=== PATIENT | male | born 1985 | race Caucasian/White ===

== ENCOUNTER 2017-02-23 04:51 | Emergency (ER) | payer OTHER ==
[~2017-02-23] VITALS: Ht 185.4 cm; Wt 127.0 kg
[~2017-02-23 04:51] MED LIST: PREDNISONE10 MG PO
[2017-02-23 04:57] VITALS: BP 150/83
--- NOTE | 2017-02-23 05:59 | RADIOLOGY REPORT ---
EXAMINATION: 3 VIEWS OF THE LEFT FOOT AND 3 VIEWS OF THE LEFT ANKLE CLINICAL INFORMATION: Pain after rolling ankle COMPARISON: None available FINDINGS: Left ankle: No acute fracture is appreciated. Bony articulations are maintained. There is a small chronic appearing well-corticated ossific density along the lateral margin of the talus. There is no ankle joint effusion. No radiopaque foreign body. Left foot: Please note that assessment of the left foot is technically limited with several of the digits not entirely included on this study despite window and leveling. The digits are present on the lateral view. No fractures are identified. The bony articulations are maintained. IMPRESSION: Left ankle: No fracture. Left foot: Technically limited study. Please note that the digits are not entirely included on the submitted views. No acute findings within the visualized left foot.
--- NOTE | 2017-02-23 06:04 | ED ANKLE/FOOT INJURY COMPLAINT ---
History of Present Illness General Chief Complaint: Foot or Ankle Injury Stated Complaint: L ANKLE INJURY "ROLLED" Source: patient Exam Limitations: no limitations Vital Signs & Intake/Output Vital Signs & Intake/Output Vital Signs Date Time Temp Pulse Resp B/P B/P Pulse O2 O2 Flow FiO2 Mean Ox Delivery Rate 02/23 0457 98.0 91 20 150/83 99 Allergies Coded Allergies: NO KNOWN ALLERGIES (12/05/14) Reconcile Medications No Known Home Medications Triage Note: PER PT ROLLED L ANKLE PLAYING BASKETBALL ABOUT 1999, PAIN 04/14 INTENSE Triage Nurses Notes Reviewed? yes Occurred: yesterday Duration: hour(s):, constant, continues in ED, getting worse Severity: moderate Pain/Injury Location: Left: Ankle. Modifying Factors: Worsens With: movement. HPI: Patient presents for evaluation of left ankle pain after "rolled" it. Incident occurred at about 7 or 8:00 last night. Since then he has had worsening pain and swelling particularly over the lateral aspect of the left ankle. No associated ecchymoses at this point. Patient has not tried any medications for it. Past History Travel History Traveled to [place] past 21 day No Medical History Any Pertinent Medical History? 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 No Review of Systems Review of Systems Constitutional: Reports: no symptoms. EENTM: Reports: no symptoms. Respiratory: Reports: no symptoms. Cardiovascular: Reports: no symptoms. GI: Reports: no symptoms. Genitourinary: Reports: no symptoms. Musculoskeletal: Reports: see HPI. Skin: Reports: no symptoms. Neurological/Psychological: Reports: no symptoms. Hematologic/Endocrine: Reports: no symptoms. Immunologic/Allergic: Reports: no symptoms. All Other Systems: Reviewed and Negative Physical Exam Physical Exam Leg/Knee/Thigh Left: SEE BELOW Comments: Gen.: Well-nourished, well-developed, no acute respiratory distress. Head: Normocephalic, atraumatic. Eyes: Normal inspection bilaterally Ears: Normal inspection bilaterally Nose: Normal inspection, nasal cannula in place Throat/mouth : Moist mucosa Neck: Supple, full range of motion, no goiter Heart: Regular rate and rhythm Lungs: Quiet respirations Back: Normal range of motion Extremities: Left ankle: Lateral soft tissue swelling with tenderness but no tenderness over the posterior aspect of the lateral malleolus, no tenderness over the medial malleolus or anteriorly. The left foot is neurovascularly intact with sensation to light touch normal, normal dorsalis pedis pulse and normal capillary refill to the toes. The left foot is nontender to palpation. Neurologic: Cranial nerves grossly intact, speech is clear Skin: warm and dry Psychiatric: Calm, cooperative, no apparent delusions or hallucinations Progress Differential Diagnosis: fracture, dislocation, sprain Plan of Care: Orders Procedure Date/time Status Durable Medical Equipment 02/24 616 Active Current Medications Sig/Jorge Start time Last Medication Dose Stop Time Status Admin Ibuprofen 600 MG ONCE ONE 02/23 630 UNVr (Motrin) 02/23 631 Diagnostic Imaging: Discussed w/RAD: Radiology Read. Radiology Impression: PATIENT: JUWAN DE LA FUENTE PRESENT AGE: 32 PATIENT ACCOUNT NO: [id number] : 84 LOCATION: [facility] ORDERING PHYSICIAN: REINALDO SAL DO (TBS) SERVICE DATE: 02/23/17 EXAM TYPE: RAD - XRY-ANKLE 3 OR MORE VIEWS L; XRY-FOOT COMPLETE, LEFT EXAMINATION: 3 VIEWS OF THE LEFT FOOT AND 3 VIEWS OF THE LEFT ANKLE CLINICAL INFORMATION: Pain after rolling ankle COMPARISON: None available FINDINGS: Left ankle: No acute fracture is appreciated. Bony articulations are maintained. There is a small chronic appearing well-corticated ossific density along the lateral margin of the talus. There is no ankle joint effusion. No radiopaque foreign body. Left foot: Please note that assessment of the left foot is technically limited with several of the digits not entirely included on this study despite window and leveling. The digits are present on the lateral view. No fractures are identified. The bony articulations are maintained. IMPRESSION: Left ankle: No fracture. Left foot: Technically limited study. Please note that the digits are not entirely included on the submitted views. No acute findings within the visualized left foot. DICTATED BY: REINALDO MENON MD DATE/TIME DICTATED:05/21/ 17 / 0548 [facility] DATE/TIME TRANSCRIBED:02/23/17547 CONFIDENTIAL, DO NOT COPY WITHOUT APPROPRIATE AUTHORIZATION. <Electronically signed in Other Vendor System> SIGNED BY: REINALDO MENON MD 02/23/17 0559 Departure Departure Disposition: HOME OR SELF CARE Condition: Stable Clinical Impression Primary Impression: Left ankle sprain Qualifiers: Encounter type: initial encounter Involved ligament of ankle: unspecified ligament Qualified Code: S93.402A - Sprain of unspecified ligament of left ankle, initial encounter Referrals: BELLE FALK,LISS Mcghee (PCP/Family) Additional Instructions: Ice and elevation over the next 48-72 hours. Ibuprofen 600 mg every 6 hours as needed for pain. Air splint as needed. Follow-up with your primary care doctor in 7-10 days if not improving. Return if any concerns or sudden worsening. Please note that there might be incidental findings in your evaluation that are unrelated to the current emergency department visit. Please notify your primary care doctor about this emergency department visit in order to obtain and review all of the testing performed so that these incidental findings can be monitored as needed. If you had an x-ray performed, please understand that some fractures may not be seen on the initial set of x-rays. If your symptoms persist you might need a repeat set of x-rays to check for such a fracture. If you had a laceration evaluated, please understand that foreign bodies such as glass or wood may not be visible to the naked eye or on plain x-rays. If the wound becomes red, swollen, increasingly more painful or if there is any drainage from the wound, please have it reevaluated by a physician for the possibility of a retained foreign body. Thank you for choosing the [facility] Emergency Department for your care. It was a pleasure to serve you today. Reinaldo eTrry M.D. [facility] Departure Forms: Customer Survey General Discharge Information Prescriptions: Current Visit Scripts No Known Home Medications
== END 2017-02-23 06:36 ==
LOC: ERH 04:51
DX: S93.402A Sprain of unspecified ligament of left ankle, initial encounter (principal); X58.XXXA Exposure to other specified factors, initial encounter; Y92.9 Unspecified place or not applicable; Y93.9 Activity, unspecified
CPT/HCPCS: 73610-LT; 73630-LT